=== PATIENT | female | born 1960 | race Caucasian/White ===

== ENCOUNTER 2017-04-30 06:08 | Observation (INO) | payer OTHER ==
[~2017-04-30] VITALS: Ht 165.1 cm; Wt 78.9 kg
[2017-04-30] VITALS (11 sets, daily range): BP systolic 93–1327; BP diastolic 49–70
--- NOTE | ~2017-04-30 | O ---
[facility] [place] [address] OPERATIVE REPORT Name: DAVE LONGO Room #: 150-6 [facility].#: [id number] Admission: 04/30/17 Attend Phys: Johann Cheney MD Discharge: Date of : 56 Report #: [id number] THIS REPORT FOR: //name// CC: Johann Gutierrezolly DATE OF SERVICE: 04/30/2017 DATE OF SERVICE: 04/30/2017. PREOPERATIVE DIAGNOSES: Right L5-S1 facet arthropathy with reactive synovial cyst causing foraminal stenosis and radiculopathy. POSTOPERATIVE DIAGNOSES: Right L5-S1 facet arthropathy with reactive synovial cyst causing foraminal stenosis and radiculopathy. PROCEDURES: Right L5-S1 laminectomy and foraminotomy with excision of chronic hypertrophic periarticular synovial cyst. SURGEON: Johann Cheney MD. INDICATIONS: This 56-year-old female complains of rather severe progressive right leg pain with some associated numbness and weakness. She has had symptoms for several months, which have been unresponsive to conservative measures. She has also tried injection and attempted aspiration of a synovial cyst noted on MRI study, which significantly crowds the canal. This was not effectively in relieving her symptoms, we have elected to go ahead with surgical decompression. DESCRIPTION OF PROCEDURE: The patient was taken to the operating room where she was placed under general anesthesia. Prophylactic intravenous antibiotics were administered. She was turned to the prone position. The low back was meticulously prepped and draped. A skin incision was made overlying the L5-S1 interspace slightly to the right of midline. This was carried through fascia and the paraspinal muscles were retracted laterally. A small laminotomy in the inferior aspect of L5 and the superior aspect of S1 was created. This was difficult as there was significant bony hypertrophy consistent with a rather severely degenerative facet joint. There was also an obvious cyst, which actually extended from this facet joint posteriorly as well as obviously down into the neural canal. The cyst was opened posteriorly as the facet joint was debrided and rather than a fluid filled cyst this seemed to be hypertrophic reactive synovium with some dense fibrous tissue consistent with rather chronic hemorrhagic scarring. The medial border of the facet was debrided. The laminectomy in the inferior aspect of L5 and the superior aspect of S1 were enlarged to allow better visualization, the canal was obviously abnormal with a large scar hemorrhagic and synovial cyst. This was quite adherent to both the bony side rapp of the canal and also to the dura making dissection difficult. [address] [address] OPERATIVE REPORT Name: DAVE LONGO Room #: 150-6 [facility]#: [id number] Admission: 04/30/17 Attend Phys: Johann Cheney MD Discharge: Date of : 56 Report #: [id number] This was gradually peeled the way from the side of the dura and dissected in the piecemeal fashion. The dissection was extended proximally and distally until fairly normal dura was visualized. The dissection was extended out along the right S1 root, which was obviously deformed by the cyst initially, but seemed to free up and was in more normal position. Once the dissection had been completed, the underlying disk was palpated, but seemed to be fairly normal without any significant abnormalities and I did not feel violation of the disk was necessary. Intraoperative fluoroscopy was used to confirm that I was at the appropriate level and clearly overlying the L5-S1 disk level. At this point, the entire wound was copiously irrigated. There was still some mild ongoing oozing from the hypertrophic and hypervascular tissues around these areas of scarring. This was controlled with temporary use of Gelfoam and thrombin. The nerve root was somewhat inflamed and I felt local Depo-Medrol would be helpful, 80 mg of Depo-Medrol were left around the epidural space. The laminotomy defect was covered with a small sheet of Gelfoam soaked in thrombin. The deep muscles were then closed with multiple 0 Vicryl sutures. The fascia was also closed with 0 Vicryl sutures. The subcutaneous tissues were closed with 0 Monocryl. The skin was closed with skin lester. A sterile dressing was applied. The patient was awakened and returned to recovery room in satisfactory condition. <ELECTRONICALLY SIGNED> By: Johann Cheney MD 04/30/17 [id number] [id number] Johann Cheney MD /nt
--- NOTE | ~2017-04-30 | D ---
[facility] [place] [address] DISCHARGE SUMMARY Name: DONTADAVE Margy Room #: 544-P [facility] Saira Bryant#: [id number] Admission: 04/30/17 Attend Phys: Johann Cheney MD Discharge: 05/01/17 Date of : 56 Report #: [id number] THIS REPORT FOR: //name// CC: Johann Segura DATE OF SERVICE: 05/01/2017 FINAL DIAGNOSES: Lumbar spinal stenosis with degenerative facet cyst and radiculopathy. OPERATIONS AND PROCEDURES: Decompressive lumbar laminectomy and excision of hypertrophic facet and associated facet cyst, L5-S1, right. HISTORY OF PRESENT ILLNESS: This 56-year-old female presents with progressive right leg pain with some associated numbness and weakness. Findings are consistent with radiculopathy and MRI reveals a markedly degenerative facet joint with a large perifacet cyst which causes significant canal compromise at the L5-S1 level. She has tried conservative measures including time, epidural steroids and attempted percutaneous puncture of the cyst without benefit. She has elected to go ahead with surgical decompression. HOSPITAL COURSE: The patient was admitted and taken to the operating room on 04/30/2017. She underwent a decompressive lumbar laminectomy with excision of a large fibrotic and hemorrhagic cyst and decompression of hypertrophic facet joint at L5-S1 on the right side. There was significant impingement on the canal and significant scarring in the epidural space making dissection difficult. Nevertheless, she seemed to have a good decompression. Postoperatively, she was monitored overnight to evaluate general vital signs and neurologic status: She did quite nicely with only moderate low back pain and some moderate ongoing right leg discomfort. There was no significant neurologic deficit. She was able to resume regular diet. She seemed to be safe and ambulatory on the following morning and felt she was ready for discharge. DISCHARGE MEDICATIONS: Include etodolac 400 mg tablets once daily p.r.n. for pain, Zyrtec 10 mg daily, Flonase nasal spray b.i.d., melatonin 5 mg at bedtime, hydrocodone 7.5 mg one q. 4 hours p.r.n. for pain. She will continue with gentle gradually advancing activity at home. I have asked her to call me should there be any problems or questions. We will plan to see her back in the office for followup and wound inspection in 2 weeks. <ELECTRONICALLY SIGNED> By: Johann Cheney MD 05/05/17 0657 [id number] [id number] Johann Cheney MD /nt
--- NOTE | ~2017-04-30 | S ---
[facility] [place] [address] SURGICAL PATH RPT PROCEDURE Name: JENNIE LONGO Room #: 544-P [facility] Saira Bryant#: [id number] Admission: 04/30/17 Date of : 56 Discharge: 05/01/17 Report #: [id number] Path Case #: [id number] PATHOLOGY REPORT COLLECTION DATE: 04/30/2017 RECEIVED DATE: 04/30/2017 SUBMITTING PHYS: Dr. Johann Cheney OTHER PHYS: Dr. Brijesh Segura SPECIMEN(S) RECEIVED: A.Lumbar 5 facet cyst * * * * * * * * * * * * FINAL DIAGNOSIS: Lumbar facet cyst, excision: - Moderate active inflammation along with granulation tissue and reactive changes. - Dense fibrous tissue as well as fragments of cartilage, history of L5-S1 radiculopathy. (IUV:mgr; d/t: 05/04/2017) PATHOLOGIST: Zulema Manning M.D. REPORT ELECTRONICALLY SIGNED BY: Zulema Manning M.D. DATE/TIME: 05/04/2017 15:33 * * * * * * * * * * * * GROSS PATHOLOGY: The specimen is received in formalin labeled "Jennie Longo, lumbar facet cyst," and additionally labeled on the requisition as, "lumbar 5 facet cyst". Received are multiple segments of light beltran gritty tissue measuring 3.5 x 3.0 x 0.4 cm in aggregate dimensions. The specimen is submitted representatively in cassette A1. (CAA; 05/01/2017) CLINICAL HISTORY: Lumbar L5, S1 radiculopathy INITIAL CPT CODE(S): A; 11807 Professional services performed by [facility] at [facility] [address], [place] [address] Technical services performed by [facility] at [address] [place] [address]. [facility] [address] [place] [address] SURGICAL PATH RPT PROCEDURE Name: DONTASHANNONJENNIE Margy Room #: 544-P [facility] Saira Whiting.#: [id number] Admission: 04/30/17 Date of : 56 Discharge: 05/01/17 Report #: [id number] Path Case #: [id number] [facility] [address] [address] PHONE: [phone] DIRECTOR: Danilo Blackman M.D. * * * END OF REPORT * * *
[~2017-04-30 06:08] MED LIST: AZELASTINE137 MCG/0. NASAL; CALCIUM 500 +1 EAC5 PO; ETODOLAC 400 M400 MG PO; FISH OIL 1,001000 M2 PO; FLONASE 0.05%50 MCG NASAL; MELATONIN5 M1 PO; VITAMIN D1000 UNI1 PO; ZYRTEC10 M5 PO
[2017-05-01 03:22] VITALS: BP 121/64
[2017-05-01 08:00] VITALS: BP 121/64
[2017-05-01 08:26] VITALS: BP 121/64
[2017-05-01 10:07] VITALS: BP 121/64
== END 2017-05-01 12:50 | disposition home health service (06) ==
LOC: OR 06:08 → TBA 06:08 → OR 09:32 → 5S 15:28 → OR 15:28 → 5S 05-01 12:50
DX: M51.16 Intervertebral disc disorders with radiculopathy, lumbar region (principal); M48.06 Spinal stenosis, lumbar region; M71.38 Other bursal cyst, other site; M12.88 Other specific arthropathies, not elsewhere classified, other specified site; M47.896 Other spondylosis, lumbar region
CPT/HCPCS: 50010; 50101; 50402; 50704; 50850; 51412; 56525; 62110; 62900; 70005